=== PATIENT | female | born 1965 | race Caucasian/White ===

== ENCOUNTER 2017-02-17 14:17 | Outpatient (CLI) | payer BC ==
--- NOTE | 2017-02-17 15:18 | MMO ---
BILATERAL SCREENING MAMMOGRAM: DATE: 02/17/17 HISTORY: [id number] female for screening mammography. COMPARISON: 09/24/06. FINDINGS: Bilateral MLO and CC views of the breasts show scattered fibroglandular breast tissue. Benign-appear ing calcifications are seen in both breasts. There is no evidence of suspicious mass, suspicious clu ster of microcalcifications, or area of architectural distortion. Interpretation of this mammogram was performed with the assistance of computer-aided detection. IMPRESSION: BIRADS 2: Benign Finding(s) Annual screening mammography is recommended. POS: YOKO
== END 2017-02-17 14:18 | disposition home or self-care (01) ==
LOC: MAMMO 14:17
PROVIDERS: ATTEND Obstetrics & Gynecology
DX: Z12.31 Encounter for screening mammogram for malignant neoplasm of breast (principal)
CPT/HCPCS: 77067; G0202

== ENCOUNTER 2020-07-24 19:28 | Inpatient (IN) | payer BC ==
[2020-07-24] MEDS ORDERED: Acetaminophen 650 MG Suppository PR PRN (21:50)
[2020-07-24] MEDS ORDERED: Acetaminophen 325 MG TAB PO PRN (21:50)
[2020-07-24] MEDS ORDERED: Dextrose 5% in Water 1,000 ML IV PRN (21:53)
[2020-07-24] MEDS ORDERED: Dextrose 50% Abboject 50 ML SYRINGE SLOW IVP PRN (21:53)
[2020-07-24] MEDS ORDERED: HumaLOG 300 UNITS/3 ML VIAL SC PRN (21:53)
[2020-07-24] MEDS ORDERED: Lidocaine 2% Viscous Solution 10 ML, Aluminum & Magnesium Hydroxide 30 ML SSW SCH (22:30)
[2020-07-24] MEDS ORDERED: traMADol HCl 50 MG TAB PO PRN (22:35)
[2020-07-24] MEDS ORDERED: Famotidine/PF 20 mg/2ml Vial SLOW IVP SCH (22:45)
[2020-07-24 22:51] LABS: Hemoglobin 10.9 g/dL (12.0-16.0); Mean Corpuscular HGB CONC 32.5 g/dL (32.0-36.0); Mean Corpuscular Hemoglobin 29.4 pg (27.0-31.0); Mean Corpuscular Volume 90.6 fL (78.0-98.0); Mean Platelet Volume 8.4 fL (7.4-10.4); Platelet Count 144 thou/uL (130-400); Red Blood Cell (RBC) Count 3.72 mill/uL (4.20-5.40)
[2020-07-24 22:58] LABS: ALT (SGPT) 20 U/L (8-55); AST (SGOT) 13 U/L (5-34); Albumin 2.6 g/dL (3.5-5.0); Alkaline Phosphatase 126 U/L (40-110); Anion Gap 17 mmol/L (10-20); BUN (Urea Nitrogen) 40 mg/dL (9.8-20.1); Bilirubin, Total 0.3 mg/dL (0.2-1.2); Calc. Creatinine Clearance 0 mL/min (70-130); Calcium 7.9 mg/dL (7.8-10.44); Carbon Dioxide 20 mmol/L (22-29); Chloride 102 mmol/L (98-107); Glucose 236 mg/dL (70-105); Magnesium 1.7 mg/dL (1.6-2.6); Potassium 3.5 mmol/L (3.5-5.1); Protein, Total 5.6 g/dL (6.0-8.3); Sodium 135 mmol/L (136-145)
[2020-07-24] MEDS ORDERED: Sodium Chloride 0.9% 1,000 ML IV SCH (23:00)
[2020-07-24 23:15] LABS: Band 27 % (5-11); Lymphocytes 6 % (21-51); MDiff Complete? YES; Monocytes 2 % (0-10); Neutrophil 65 % (42-75); Toxic Granulation SLIGHT; Vacuoles SLIGHT
--- NOTE | 2020-07-25 | PDOC.HHP ---
Hospitalist HPI History of Present Illness: ADMISSION DATE: 07/24/2020 TIME OF ASSESSMENT: 2099 PRIMARY CARE PHYSICIAN: Dr. Shipman CHIEF COMPLAINT: Abdominal pain HPI: This is a 55-year-old woman who was transferred here from [facility] after presenting with acute abdominal pain that started abruptly today. States it s eemed to be worse on the right side of her abdomen but it was also affecting the left side of her abdomen reports discomfort radiating towards her back bilaterally. Has not had anything to eat or drink today and reports having no bowel movement in 3 days. Currently she is experiencing some epigastric discomfort which she feels is associated with reflux and is having excessive belching. Reports having some nausea with dry heaving yesterday. ED COURSE: Patient received IV antibiotics with Rocephin and was given 2 L of normal saline. For her pain she received hydromorphone 0.5 mg IV x1. For nausea she received Zofran [address] abdomen and pelvis with stone protocol done and revealed mild to moderate right renal edema. Moderate right hydronephrosis. Right ureteropelvic junction 5 x 7 x 12 mm calculus. Bilateral intrarenal calculi measuring 1 to 3 mm. Some air seen within the bladder suggesting recent catheterization. Nonspecific mildly distended fluid-filled loops of small bowel in the abdomen and pelvis felt to be associated with adynamic ileus. Some fluid in the ascending colon. Left ovarian 2.2 x 2.3 cm cyst. Possible gallbladder sludge. Urinalysis showed bernard appearing urine with 2+ bilirubin, 1+ ketone, 2+ protein, trace leukocytes, negative nitrates and negative blood. Covid testing done, results unknown. Labs showed potassium 3.8, BUN 39, creatinine 1.4, alk phos 127, AST 22, ALT 20, total bilirubin 0.8. GFR 50. White blood count 10.3, hemoglobin 11.9, hematocrit 37.7, platelets 199. Allergies/Adverse Reactions: Allergy/AdvReac Type Severity Reaction Status Date / Time codeine AdvReac Verified 07/24/20 22:22 Home Medications: Medication Instructions Recorded Confirmed Type glyBURIDE [Glyburide] 5 mg PO DAILY 07/24/20 07/24/20 History metFORMIN [Glucophage] 1,000 mg PO BID-WM 07/24/20 07/24/20 History Past History: PAST MEDICAL HISTORY: 1. Type 2 diabetes mellitus PAST SURGICAL HISTORY: None. SOCIAL HISTORY: Denies any tobacco use. Admits to drinking alcohol socially. Denies any drug use. She lives with her at home and fully independent at baseline. FAMILY HISTORY: Noncontributory Hospitalist Exam Vitals: Vital Signs (12 hours) Temp Pulse Resp BP Pulse Ox 07/24/20 23:17 97.9 F 106 H 18 107/71 94 L Hospitalist Results Result Diagrams: 07/24/20 22:30 07/24/20 22:30 Lab results: Laboratory Last Values WBC 6.0 thou/uL (4.8-10.8) 07/24/20 22: RBC 3.72 mill/uL (4.20-5.40) L 07/24/20 22: Hgb 10.9 g/dL (12.0-16.0) L 07/24/20 22:30 Hct 33.7 % (36.0-47.0) L 07/24/20 22: MCV 90.6 fL (78.0-98.0) 07/24/20 22: MCH 29.4 pg (27.0-31.0) 07/24/20 22: MCHC 32.5 g/dL (32.0-36.0) 07/24/20 22: RDW 13.0 % (11.5-14.5) 07/24/20 22: Plt Count 144 thou/uL (130-400) 07/24/20 22:30 MPV 8.4 fL (7.4-10.4) 07/24/20 22:30 Neutrophils % (Manual) 65 % (42-75) 07/24/20 22:30 Band Neuts % (Manual) 27 % (5-11) H 07/24/20 22:30 Lymphocytes % (Manual) 6 % (21-51) L 07/24/20 22: Monocytes % (Manual) 2 % (0-10) 07/24/20: Lymphocytes # Not Reportable 07/24/20 22:30 WBC Morphology SLIGHT 07/24/20 22:30 Toxic Granulation SLIGHT 07/24/20 22:30 Sodium 135 mmol/L (136-145) L 07/24/20 22: Potassium 3.5 mmol/L (3.5-5.1) 07/24/20 22:30 Chloride 102 mmol/L (98-107) 07/24/20 22:30 Carbon Dioxide 20 mmol/L (22-29) L 07/24/20 22:30 Anion Gap 17 mmol/L (10-20) 07/24/20 22:30 BUN 40 mg/dL (9.8-20.1) H 07/24/20 22:30 Creatinine 1.43 mg/dL (0.6-1.1) H 07/24/20 22:30 Estimated GFR (MDRD) 38 07/24/20 22:30 Glucose 236 mg/dL (70-105) H 07/24/20 22:30 Lactic Acid 1.0 mmol/L (0.5-2.2) 07/24/20 22:30 Calcium 7.9 mg/dL (7.8-10.44) 07/24/20 22:30 Magnesium 1.7 mg/dL (1.6-2.6) 07/24/20 22:30 Total Bilirubin 0.3 mg/dL (0.2-1.2) 07/24/20 22:30 AST 13 U/L (5-34) 07/24/20 22:30 ALT 20 U/L (8-55) 07/24/20 22:30 Alkaline Phosphatase 126 U/L (40-110) H 07/24/20 22:30 Serum Total Protein 5.6 g/dL (6.0-8.3) L 07/24/20 22:30 Albumin 2.6 g/dL (3.5-5.0) L 07/24/20 22:30 Globulin 3.0 g/dL (2.4-3.5) 07/24/20 22:30 Albumin/Globulin Ratio 0.9 g/dL (1.2-2.2) L 07/24/20 22:30 Hospitalist H&P A/P (1) Obstruction of right ureteropelvic junction (UPJ) due to stone Code(s): N20.1 - CALCULUS OF URETER Status: Acute Assessment and Plan: Obtain repeat labs including renal function Consult placed to Dr. Retana who apparently is aware of case Continue IV antibiotics Morphine PRN for pain (2) Abdominal pain Code(s): R10.9 - UNSPECIFIED ABDOMINAL PAIN Status: Acute Assessment and Plan: Well-controlled with Morphine (3) Dehydration Code(s): E86.0 - DEHYDRATION Status: Acute Assessment and Plan: Patient with stomatitis, will start IV fluids Awaiting repeat labs to assess current renal function (4) Diabetes mellitus Code(s): E11.9 - TYPE 2 DIABETES MELLITUS WITHOUT COMPLICATIONS Status: Chronic Assessment and Plan: Monitor ISS, accu-checks Hold PO meds (5) GERD (gastroesophageal reflux disease) Code(s): K21.9 - GASTRO-ESOPHAGEAL REFLUX DISEASE WITHOUT ESOPHAGITIS Status: Chronic Assessment and Plan: Patient with indigestion, will give GI cocktail Famotidine 20 mg BID as well Plan: CODE STATUS: FULL Case discussed with Dr. Goodwin who agrees with plan as above.
[2020-07-25 00:48] VITALS: BMI 28.2
[2020-07-25] MEDS ORDERED: Magnesium 2 GM/50 ML 2 GM in Premix Bag 1 BAG IVPB SCH (04:00)
[2020-07-25] MEDS: Morphine 2 MG/ML VIAL SLOW IVP PRN ×2 (05:04→08:41)
[2020-07-25] MEDS: Sodium Chloride 0.9% 1,000 ML IV SCH ×2 (05:07→08:40)
[2020-07-25 06:58] LABS: Hemoglobin 12.3 g/dL (12.0-16.0); Mean Corpuscular HGB CONC 31.6 g/dL (32.0-36.0); Mean Corpuscular Hemoglobin 29.2 pg (27.0-31.0); Mean Corpuscular Volume 92.4 fL (78.0-98.0); Mean Platelet Volume 8.6 fL (7.4-10.4); Platelet Count 170 thou/uL (130-400); RBC Distribution Width 13.2 % (11.5-14.5); Red Blood Cell (RBC) Count 4.19 mill/uL (4.20-5.40); White Blood Cell (WBC) Count 9.3 thou/uL (4.8-10.8)
[2020-07-25 07:09] LABS: ALT (SGPT) 23 U/L (8-55); AST (SGOT) 13 U/L (5-34); Albumin 2.8 g/dL (3.5-5.0); Alkaline Phosphatase 148 U/L (40-110); Anion Gap 18 mmol/L (10-20); BUN (Urea Nitrogen) 34 mg/dL (9.8-20.1); Bilirubin, Total 0.4 mg/dL (0.2-1.2); Calc. Creatinine Clearance 46 mL/min (70-130); Calcium 8.4 mg/dL (7.8-10.44); Carbon Dioxide 20 mmol/L (22-29); Chloride 100 mmol/L (98-107); Globulin 3.5 g/dL (2.4-3.5); Glucose 238 mg/dL (70-105); Potassium 3.7 mmol/L (3.5-5.1); Protein, Total 6.3 g/dL (6.0-8.3); Sodium 134 mmol/L (136-145)
[2020-07-25] MEDS ORDERED: Bisacodyl 5 MG TAB PO PRN (07:38)
[2020-07-25] MEDS ORDERED: HYDROcodone/Acetaminophen 10/325 mg Tablet PO PRN (07:38)
[2020-07-25 08:35] LABS: Band 34 % (5-11); Large Platelets SLIGHT; Lymphocytes 8 % (21-51); MDiff Complete? YES; Metamyelocyte 3 % (0-0); Monocytes 3 % (0-10); Neutrophil 50 % (42-75); Platelet Morphology Comment Appears Adequate; Polychromasia SLIGHT = 2-3 cells (100X) (0-2/hpf); Reactive Lymphocytes 1 % (0-10)
[2020-07-25] MEDS: Oxybutynin 5 MG TAB PO SCH (08:40)
[2020-07-25] MEDS: Tamsulosin HCl 0.4 MG CAP PO SCH (08:40)
--- NOTE | 2020-07-25 09:17 | CON ---
DATE OF CONSULTATION: 07/25/2020 REASON FOR CONSULTATION: Right ureteral stone. CHIEF COMPLAINT: Right back pain. HISTORY OF PRESENT ILLNESS: This is a 55-year-old female, who developed right-sided back pain radiating towards the front and towards her groin over the past week. This first started last Friday and worsened over the past 24 to 48 hours to the point that she was seen at [facility] yesterday. She was then transferred to [facility], where workup revealed a large right ureteral stone with finding suggestive of infection including a small amount of air in her bladder. Her blood sugar was elevated in the 250s and so she was transferred over to [place] for further management. She was admitted overnight to the Hospitalist Service. In speaking with her, she denies having any recent fevers and reports that her pain is somewhat improved overnight, but still up to about 7/10 frequently. She is not having any nausea at this point, and denies dysuria, hematuria, or suprapubic pain. No history of stones. No problems with recurrent bladder infections. PAST MEDICAL HISTORY: Diabetes. PAST SURGICAL HISTORY: None. SOCIAL HISTORY: Nonsmoker. No substance abuse. Works at [employer] at [employer]. FAMILY HISTORY: Reviewed, noncontributory. HOME MEDICATIONS: Glyburide and metformin. ALLERGIES: CODEINE. REVIEW OF SYSTEMS: A 12-point review of systems is negative except as mentioned in my HPI. PHYSICAL EXAMINATION: VITAL SIGNS: Afebrile, tachycardic between 100 and 120 overnight, blood pressure stable. GENERAL: In no acute distress. Conversant. HEENT: Head, normocephalic and atraumatic. Extraocular movements intact. Sclerae anicteric. NECK: Supple. Trachea midline. CHEST: Unlabored breathing. Symmetric chest expansion. HEART: Regular rate and rhythm. ABDOMEN: Soft, nontender, nondistended. Positive right flank tenderness. No suprapubic tenderness. EXTREMITIES: No peripheral edema or cyanosis. SKIN: Warm and dry. NEUROLOGIC: Alert and oriented x3. PSYCHIATRIC: Normal mood and affect. DIAGNOSTIC STUDIES: Laboratory from [facility] reviewed. Creatinine 1.4. White count 10. Urinalysis; trace leukocytes, negative nitrite. Laboratory this morning, white count 9.3, 50% neutrophils. Creatinine 1.39. IMAGING DATA: I was unable to get the CD to load from [facility]; however, I have been able to review the report, which indicates a 12-mm right UPJ stone with hydronephrosis and edema of the right kidney as well as air in the bladder. ASSESSMENT AND PLAN: Right ureteral stone, possible urinary tract infection, acute kidney injury. The patient and I discussed her options and I advised that we proceed to the operating room today for right ureteral stent placement. I do not think an attempt at intervention is stone under the current setting. I explained the stent procedure in detail including the risks of bleeding, infection, pain, possible inability to place the stent requiring a nephrostomy tube, and the need for definitive stone management over the next couple of weeks. She expresses understanding and wishes to continue. I expect her creatinine to improve with drainage of the right renal unit. Job ID: [id number]
[2020-07-25] MEDS ORDERED: Ondansetron PF 4 MG/2 ML Vial ONE ×2 (09:31→11:40)
[2020-07-25] MEDS ORDERED: Dexamethasone 20 MG/5 ML VIAL ONE (09:31)
[2020-07-25] MEDS ORDERED: Rocuronium Bromide 10 MG/ML (10ML VIAL) ONE (09:31)
[2020-07-25] MEDS ORDERED: PROPOFOL 200 MG/20 ML VIAL ONE (09:31)
[2020-07-25] MEDS ORDERED: Lidocaine 1% PF 5 ML VIAL ONE (09:31)
[2020-07-25] MEDS ORDERED: Morphine 4 MG/ML VIAL ONE (11:40)
[2020-07-25] MEDS ORDERED: Ketorolac Tromethamine 30 MG/ML VIAL IVP SCH (12:00)
[2020-07-25] MEDS ORDERED: Levofloxacin 500 mg/D5W 100 ml Premix Bag ONE (12:40)
[2020-07-25] MEDS ORDERED: Iothalamate Meglumine 60% 50 ML VIAL FS ONE (12:43)
[2020-07-25] MEDS ORDERED: Fentanyl 100 MCG/2 ML VIAL ONE (12:59)
[2020-07-25] MEDS ORDERED: Ondansetron HCl/PF 4 MG/2 ML Vial IVP PRN (13:32)
[2020-07-25] MEDS ORDERED: Promethazine HCl 25 MG/ML VIAL IM PRN (13:32)
[2020-07-25] MEDS ORDERED: Promethazine HCl 25 MG/ML VIAL SLOW IVP PRN (13:32)
[2020-07-25] MEDS ORDERED: SUGAMMADEX SODIUM 200 MG/2 ML VIAL ONE (13:39)
[2020-07-25] MEDS ORDERED: Promethazine HCl 25 MG/ML VIAL ONE (13:55)
--- NOTE | 2020-07-25 13:59 | OP ---
DATE OF PROCEDURE: 07/25/2020 PREOPERATIVE DIAGNOSIS: Right ureteral stone. POSTOPERATIVE DIAGNOSIS: Right ureteral stone. PROCEDURES PERFORMED: Cystoscopy, right retrograde pyelogram, manipulation of ureteral stone, 6 x 24 double-J ureteral stent placement. ANESTHESIA: General. COMPLICATIONS: None. ESTIMATED BLOOD LOSS: Minimal. SPECIMEN: Right renal urine culture. DESCRIPTION OF PROCEDURE: After informed consent, the patient was taken to the operating room, transferred to the table under her own power. Anesthesia was established. A time-out was performed, showing the correct patient, site, and procedure. Preoperative antibiotics were administered. She was prepped and draped in the lithotomy position. I began by inserting the rigid cystoscope through the urethra into the bladder noting a moderate cystocele. The bladder was systematically examined noting no mucosal abnormalities. The right ureteral orifice was cannulated with a Pollack catheter and a retrograde pyelogram performed showing good filling of the ureter up to the level of the stone seen on fluoroscopy in the proximal ureter. Contrast passed the stone and filled the renal pelvis, which showed minimal hydronephrosis. I was then able to pass a wire through the Pollack catheter and negotiated around the stone with some difficulty. I then attempted to pass a 6 x 24 double-J ureteral stent. However, was unable to bypass the stone with the stent and so removed the stent and switched to a dual-lumen catheter, which I was able to utilize to dislodge the stone into a more proximal region of the ureter. The dual-lumen was then easily passed into the renal pelvis. A urine culture was taken as the resultant urine was purulent in appearance. The dual-lumen was removed and then the 6 x 24 double-J ureteral stent without strings was passed over the wire with a curl in the kidney and curl in the bladder under fluoroscopic guidance. She was then awoken from anesthesia, transferred back to her hospital bed, taken to PACU in stable condition, where she will return to the floor upon recovery. Job ID: [id number]
--- NOTE | 2020-07-25 14:07 | RAD ---
RETROGRADE PYELOGRAM: HISTORY: Right stent placement. FINDINGS: A single C-arm view shows placement of a right ureteral stent. IMPRESSION: Right ureteral stent placement. POS: SHERIE
--- NOTE | 2020-07-25 15:33 | PDOC.HOSPP ---
- Subjective Encounter Date: 07/25/20 Encounter Time: 15:31 Subjective: F/u: kidney stone THe patient has mild soreness from the procedure. She presented with acute back pain, felt like someone had stabbed her. She had no hematuria or dysuria . Du Cystoscopy was done and dual lumen catheter placed to dislodge the stone - Objective Vital Signs & Weight: Vital Signs (12 hours) Temp Pulse Resp BP Pulse Ox 07/25/20 07:15 99.6 F 115 H 24 H 125/83 93 L 07/25/20 04:10 98.4 F 120 H 18 110/75 92 L Weight Weight 144 lb 8 oz I&O: 07/24/20 07/25/20 07/26/20 06:59 06:59 06:59 Intake Total 1000 Balance 1000 Result Diagrams: 07/25/20 06:34 07/25/20 06:34 Additional Labs: Accuchecks 07/25/20 07/25/20 15:07 05:55 POC Glucose 189 H 213 H Hospitalist ROS - Review of Systems Constitutional: denies: fever, chills - Medication Medications: Active Medications Generic Name Dose Route Start Last Admin Trade Name Freq PRN Reason Stop Dose Admin Sodium Chloride 1,000 mls @ 100 mls/hr 07/25/20 04:45 07/25/20 08:40 Normal Saline 0.9% IV 1,000 mls .Q10H NANCY Administration Ketorolac Tromethamine 15 mg 07/25/20 12:00 07/25/20 15:08 Ketorolac Tromethamine 30 Mg/Ml Vial IVP 07/30/20 12:01 15 mg Q6HR NANCY Administration Morphine Sulfate 2 mg 07/25/20 04:33 07/25/20 08:41 Morphine 2 Mg/Ml Vial SLOW IVP 2 mg Q4H PRN Administration Moderate to Severe Pain (6-10) Oxybutynin Chloride 5 mg 07/25/20 09:00 07/25/20 08:40 Oxybutynin 5 Mg Tab PO 5 mg DAILY NANCY Administration Tamsulosin HCl 0.4 mg 07/25/20 09:00 07/25/20 08:40 Tamsulosin Hcl 0.4 Mg Cap PO 0.4 mg DAILY NANCY Administration Tramadol HCl 50 mg 07/24/20 22:35 07/25/20 03:27 Tramadol Hcl 50 Mg Tab PO 50 mg Q4H PRN Administration Moderate Pain (4-6) Hospitalist Exam Vitals: Vital Signs (12 hours) Temp Pulse Resp BP Pulse Ox 07/25/20 07:15 99.6 F 115 H 24 H 125/83 93 L 07/25/20 04:10 98.4 F 120 H 18 110/75 92 L Weight Weight 144 lb 8 oz General Appearance: NAD, awake alert Eye: PERRL, anicteric sclera ENT: normocephalic atraumatic, no oropharyngeal lesions Neck: no JVD Heart: RRR, no murmur, no gallops, no rubs Respiratory: CTAB, no wheezes, no rales, no ronchi Gastrointestinal: soft, non-tender, non-distended, normal bowel sounds Extremities: no cyanosis, no clubbing, no edema Skin: normal turgor, no lesions, no rashes Neurological: cranial nerve grossly intact, normal sensation to touch, no weakness Musculoskeletal: normal tone, normal strength, no muscle wasting Hosp A/P - Plan CT abdomen: 5 x 7 x 12 mm calculus and moderate right hydronephrosis with mild to moderate renal edema. Mildly distended fluid filled loops of small bowel This is a 55 year old female who presented to the hospital with acute flank pain, found to have right ureteral stone s/p stent placement Right sided kidney stone with right sided hydronephrosis - pt is s/p stent placement today - continue IV fluids and IV ceftriaxone. F/u urine culture MARISEL - creatinine is improving to 1.39. Continue IV fluids Type II diabetes - hold metformin. Continue sliding scale insulin
[2020-07-25] MEDS: HumaLOG 300 UNITS/3 ML VIAL SC PRN (17:13)
[2020-07-25] MEDS ORDERED: cefTRIAXone\\ROCEPHIN 1 GM in Sodium Chloride 0.9% 100 ML IVPB SCH (19:00)
[2020-07-25] MEDS: Ketorolac Tromethamine 30 MG/ML VIAL IVP SCH (20:17)
[2020-07-25] MEDS ORDERED: Famotidine/PF 20 mg/2ml Vial SLOW IVP SCH (21:00)
[2020-07-26] MEDS: Sodium Chloride 0.9% 1,000 ML IV SCH (02:55)
[2020-07-26] MEDS: Ketorolac Tromethamine 30 MG/ML VIAL IVP SCH ×2 (02:55→08:01)
[2020-07-26] MEDS: HumaLOG 300 UNITS/3 ML VIAL SC PRN ×2 (06:03→12:15)
[2020-07-26] MEDS: Tamsulosin HCl 0.4 MG CAP PO SCH (08:01)
[2020-07-26] MEDS: Oxybutynin 5 MG TAB PO SCH (08:01)
[2020-07-26 08:14] LABS: Anion Gap 16 mmol/L (10-20); BUN (Urea Nitrogen) 42 mg/dL (9.8-20.1); Calc. Creatinine Clearance 48 mL/min (70-130); Calcium 7.7 mg/dL (7.8-10.44); Carbon Dioxide 18 mmol/L (22-29); Chloride 104 mmol/L (98-107); Glucose 320 mg/dL (70-105); Potassium 4.1 mmol/L (3.5-5.1); Sodium 134 mmol/L (136-145)
--- NOTE | 2020-07-26 09:08 | PRG ---
DATE OF SERVICE: 07/26/2020 SUBJECTIVE: No acute events overnight. She denies any fevers, nausea, or dysuria. Her right flank pain has much improved, although she still has slight discomfort with urinating as expected with the stent. She has been eating well overnight. OBJECTIVE: VITAL SIGNS: Afebrile. Vitals are stable overnight. GENERAL: Urine output has not been measured. No acute distress. Conversant. RESPIRATORY: Unlabored breathing. Symmetric chest expansion. HEART: Regular rate and rhythm. ABDOMEN: Soft, nontender, nondistended. No flank tenderness. No suprapubic tenderness. SKIN: Warm and dry. EXTREMITIES: No peripheral edema or cyanosis. NEUROLOGIC: Alert and oriented x3. LABORATORY DATA: A CBC has not been obtained. Her creatinine has improved to 1.33. ASSESSMENT AND PLAN: Postop day 1, cystoscopy, right ureteral stent placement for right ureteral stone with hydronephrosis and pyelonephritis. From urology standpoint, okay to discharge. Levaquin for 14 days has been sent to her pharmacy in [place] as well as oxybutynin for bladder spasms. I will see the results of her culture likely tomorrow and will alter therapy if necessary. However, she has already clinically improved. She can alternate Tylenol and ibuprofen for discomfort. She and I discussed her options for treating the stone and I have decided to proceed on August 08 with right ureteroscopy with laser lithotripsy. I explained the procedure in detail including the expected postoperative course and the risks of bleeding, infection, pain, and inability to access or clear the stone, possible need for second procedure, possibility of ureteral injury or stricture formation. She expressed understanding and wishes to proceed. My office will arrange this. Job ID: [id number]
[2020-07-26 13:50] VITALS: BP 139/78; TEMP 97.6
--- NOTE | 2020-07-26 18:24 | PDOC.DS.DS ---
Provider Date of Admission: 07/24/20 19:28 Date of Discharge: 07/26/20 Admitting Provider: Dannie Goodwin MD Consultations: Urology (Dr. Retana) Primary Care Physician: Treasure Shipman DO Course Hospital Course: Discharge Diagnoses: 1. Right sided kidney stone causing obstructive hydronephrosis 2. Left ovarian cyst Brief HPI: This a 55-year-old female with a past medical history of IBD presented to the emergency room from [facility] after presenting with severe right- sided abdominal pain. Pain was radiating towards her back and groin. She does CAT scan of her abdomen which showed a 5 x 7 x 12 mm calculus causing mild to moderate renal edema moderate right hydronephrosis. Also nonspecific mildly distended fluid filled loops of small bowel in the abdomen and pelvis possibly thought to represent ileus. The patient had a UA which was unremarkable for infection. Labs showed an elevated alk phos of 127, and a creatinine of 1.4. Patient was transferred here for further work-up. Hospital course: The patient underwent cystoscopy with 6x24 double-J ureteral stent placement. Stone was dislodged into more proximal region of the ureter but was unable to be removed completely. Patient was started on IV ceftriaxone. Urine culture grew Klebsiella/Enterobacter. The patient will be discharged with Levaquin empirically for 14 days and oxybutynin as needed for bladder spasms. If the final urine culture shows resistant organism, then antibiotics will be adjusted accordingly. The patient was advised to follow-up with Dr. Retana on August 08 for a laser lithotripsy. He will call her with details of the appointment time and location. Resuscitation Status: 07/24/20 21:50 Resuscitation Status Routine Co-Sign Provider: Resuscitation Status: FULL: Full Resuscitation Lab Results: 07/25/20 06:34 07/26/20 07:15 Abnormal Lab Results - Last 48 hrs 07/24/20 22:30: Sodium 135 L, Carbon Dioxide 20 L, BUN 40 H, Creatinine 1.43 H, Alkaline Phosphatase 126 H, Serum Total Protein 5.6 L, Albumin 2.6 L, Albumin/Globulin Ratio 0.9 L 07/24/20 22:30: RBC 3.72 L, Hgb 10.9 L, Hct 33.7 L, Band Neuts % (Manual) 27 H, Lymphocytes % (Manual) 6 L 07/25/20 06:34: Sodium 134 L, Carbon Dioxide 20 L, BUN 34 H, Creatinine 1.39 H, Alkaline Phosphatase 148 H, Albumin 2.8 L, Albumin/Globulin Ratio 0.8 L 07/25/20 06:34: RBC 4.19 L, MCHC 31.6 L, Band Neuts % (Manual) 34 H, Lymphocytes % (Manual) 8 L 07/26/20 07:15: Sodium 134 L, Carbon Dioxide 18 L, BUN 42 H, Creatinine 1.33 H, Calcium 7.7 L Microbiology - Entire Visit 07/25/20 13:34 Cystoscopy Urine Culture - Preliminary Presumptive Kleb/Enterobacter Vitals: Vital Signs (12 hours) Temp Pulse Resp BP BP Pulse Ox 07/26/20 13:50 97.6 F 81 20 139/78 99 07/26/20 08:00 97 07/26/20 07:16 97.8 F 74 16 136/66 97 Weight Weight 144 lb 8 oz Physical Exam: The patient was seen and examined on the day of discharge. General Appearance: NAD, awake alert Eye: PERRL, anicteric sclera ENT: normocephalic atraumatic, no oropharyngeal lesions Neck: supple, no JVD Respiratory: CTAB, no wheezes, no rales, no ronchi Cardiovascular: RRR, no murmur, no gallops, no rubs Gastrointestinal: soft, non-tender, non-distended, normal bowel sounds Extremities: no cyanosis, no clubbing Skin: normal turgor, no lesions, no rashes Neurological: cranial nerve grossly intact, normal sensation to touch, no weakness Musculoskeletal: normal tone, normal strength, no muscle wasting PSYCH: A&O x 3 Problem Time Spent in discharge related activities (mins): 30 Plan Home Medications: Medication Instructions Recorded Confirmed Type glyBURIDE [Glyburide] 5 mg PO DAILY 07/24/20 07/24/20 History metFORMIN [Glucophage] 1,000 mg PO BID- 07/24/20 07/24/20 History Allergies: codeine Adverse Reaction (Mild, Verified 07/25/20 04:57) Nausea Activity:: Activity as Tolerated Referrals: Tenzin Retana MD [Active] - 08/08/20 Treasure Shipman DO [Primary Care Provider] - Disposition: HOME Quality CORE MEASURES:: N/A
== END 2020-07-26 13:57 | disposition home or self-care (01) | DRG 660 ==
LOC: T4-A 19:28
PROVIDERS: ADMIT Student in an Organized Health Care Education/Training Program; ATTEND Internal Medicine
PROC: 0T768DZ Dilation of Right Ureter with Intraluminal Device, Via Natural or Artificial Opening Endoscopic (ICD-10-PCS; principal; 2020-07-25)
PROC: BT1D1ZZ Fluoroscopy of Right Kidney, Ureter and Bladder using Low Osmolar Contrast (ICD-10-PCS; 2020-07-25)
DX: N13.2 Hydronephrosis with renal and ureteral calculous obstruction (principal); K56.7 Ileus, unspecified; E11.9 Type 2 diabetes mellitus without complications; N17.9 Acute kidney failure, unspecified; N83.202 Unspecified ovarian cyst, left side; E86.0 Dehydration; K21.9 Gastro-esophageal reflux disease without esophagitis; Z88.6 Allergy status to analgesic agent; Z79.84 Long term (current) use of oral hypoglycemic drugs; Z79.899 Other long term (current) drug therapy
CPT/HCPCS: 36415; 36416; 74420; 80048; 80053; 83605; 83735; 85025; 87077; 87086; 87186; J0696; J1100; J1815; J1885; J1956; J2270; J2405; J2550; J2704; J3010; J3475; J3490; S0028

== ENCOUNTER 2020-07-27 23:49 | Observation (INO) | payer BC ==
[2020-07-28] MEDS ORDERED: Morphine 2 MG/ML VIAL SLOW IVP PRN (01:40)
[2020-07-28] MEDS ORDERED: Dextrose 5% in Water 1,000 ML IV PRN (01:42)
[2020-07-28] MEDS ORDERED: HumaLOG 300 UNITS/3 ML VIAL SC PRN (01:42)
[2020-07-28] MEDS ORDERED: Dextrose 50% Abboject 50 ML SYRINGE SLOW IVP PRN (01:42)
[2020-07-28] MEDS ORDERED: Senokot S 8.6-50 MG TAB PO PRN (01:44)
[2020-07-28] MEDS ORDERED: Acetaminophen 325 MG TAB PO PRN (01:44)
[2020-07-28] MEDS ORDERED: Ondansetron ODT 4 MG TAB PO PRN (01:44)
[2020-07-28] MEDS ORDERED: Bisacodyl 5 MG TAB PO PRN (01:44)
[2020-07-28] MEDS ORDERED: Ondansetron PF 4 MG/2 ML Vial IVP PRN (01:44)
[2020-07-28] MEDS ORDERED: Fentanyl 100 MCG/2 ML VIAL SLOW IVP SCH (01:45)
[2020-07-28] MEDS ORDERED: D5 1/2 NS w/10 mEq KCl 1,000 ML/1,000 ML BAG IV SCH (01:45)
[2020-07-28] MEDS: Sodium Chloride 0.9% 1,000 ML IV SCH ×2 (01:51→17:13)
[2020-07-28 02:12] VITALS: BMI 30.8
[2020-07-28 06:22] LABS: Hemoglobin 10.7 g/dL (12.0-16.0); Mean Corpuscular HGB CONC 32.7 g/dL (32.0-36.0); Mean Corpuscular Hemoglobin 29.7 pg (27.0-31.0); Mean Corpuscular Volume 90.7 fL (78.0-98.0); Mean Platelet Volume 8.3 fL (7.4-10.4); Platelet Count 175 thou/uL (130-400); RBC Distribution Width 13.5 % (11.5-14.5); Red Blood Cell (RBC) Count 3.62 mill/uL (4.20-5.40)
[2020-07-28 06:38] LABS: Anion Gap 14 mmol/L (10-20); BUN (Urea Nitrogen) 24 mg/dL (9.8-20.1); Calc. Creatinine Clearance 78 mL/min (70-130); Calcium 7.4 mg/dL (7.8-10.44); Carbon Dioxide 19 mmol/L (22-29); Chloride 105 mmol/L (98-107); Glucose 297 mg/dL (70-105); Potassium 3.9 mmol/L (3.5-5.1); Sodium 134 mmol/L (136-145)
[2020-07-28 06:45] LABS: Band 13 % (5-11); Lymphocytes 6 % (21-51); MDiff Complete? YES; Metamyelocyte 2 % (0-0); Monocytes 6 % (0-10); Neutrophil 73 % (42-75); Platelet Morphology Comment Appears Adequate
[2020-07-28] MEDS ORDERED: Insulin Glargine 20 UNITS in Pre-Filled Syringe 1 EACH SC SCH (07:45)
[2020-07-28] MEDS: Famotidine/PF 20 mg/2ml Vial SLOW IVP SCH ×2 (08:05→20:58)
[2020-07-28] MEDS: Famotidine 20 MG TAB PO SCH ×2 (08:05→21:40)
[2020-07-28] MEDS ORDERED: Iothalamate Meglumine 60% 50 ML VIAL FS ONE (08:12)
[2020-07-28] MEDS ORDERED: Fentanyl 100 MCG/2 ML VIAL ONE (08:20)
[2020-07-28] MEDS ORDERED: Levofloxacin 500 mg/D5W 100 ml Premix Bag ONE (08:34)
[2020-07-28] MEDS ORDERED: Ondansetron PF 4 MG/2 ML Vial ONE (09:01)
[2020-07-28] MEDS ORDERED: Lidocaine 1% PF 5 ML VIAL ONE (09:01)
[2020-07-28] MEDS ORDERED: PROPOFOL 200 MG/20 ML VIAL ONE (09:01)
[2020-07-28] MEDS ORDERED: Dexamethasone 20 MG/5 ML VIAL ONE (09:01)
[2020-07-28] MEDS ORDERED: Ondansetron HCl/PF 4 MG/2 ML Vial IVP PRN (09:12)
[2020-07-28] MEDS ORDERED: HYDROmorphone 2 MG/ML VIAL SLOW IVP PRN (09:12)
[2020-07-28] MEDS ORDERED: Promethazine HCl 25 MG/ML VIAL IM PRN (09:12)
[2020-07-28] MEDS ORDERED: Promethazine HCl 25 MG/ML VIAL SLOW IVP PRN (09:12)
[2020-07-28] MEDS ORDERED: Meperidine HCl/PF 25 MG/ML VIAL SLOW IVP PRN (09:12)
[2020-07-28] MEDS: HumaLOG 300 UNITS/3 ML VIAL SC PRN ×2 (12:39→17:14)
[2020-07-28] MEDS: metFORMIN 500 MG TAB PO SCH (17:13)
[2020-07-29] MEDS: Sodium Chloride 0.9% 1,000 ML IV SCH ×2 (05:29→07:07)
[2020-07-29] MEDS: HumaLOG 300 UNITS/3 ML VIAL SC PRN (07:06)
[2020-07-29 07:13] VITALS: BP 137/58; TEMP 98.5
[2020-07-29] MEDS: metFORMIN 500 MG TAB PO SCH (08:19)
[2020-07-29] MEDS: Famotidine 20 MG TAB PO SCH (08:19)
[2020-07-29] MEDS: Famotidine/PF 20 mg/2ml Vial SLOW IVP SCH (08:20)
[2020-07-29] MEDS ORDERED: glyBURIDE 5 MG TAB PO SCH (09:00)
== END 2020-07-29 13:43 | disposition home or self-care (01) ==
LOC: T4-A 07-28 01:11 → INTOOBSV 07-28 01:11
PROVIDERS: ADMIT Student in an Organized Health Care Education/Training Program; ATTEND Internal Medicine
PROC: 0T768DZ Dilation of Right Ureter with Intraluminal Device, Via Natural or Artificial Opening Endoscopic (ICD-10-PCS; principal; 2020-07-28)
DX: T83.122A Displacement of indwelling ureteral stent, initial encounter (principal); N13.6 Pyonephrosis; E11.65 Type 2 diabetes mellitus with hyperglycemia; E66.9 Obesity, unspecified; Z68.30 Body mass index [BMI] 30.0-30.9, adult; Z79.84 Long term (current) use of oral hypoglycemic drugs; Z88.5 Allergy status to narcotic agent
CPT/HCPCS: 36415; 36416; 74420; 80048; 85025; 96361; 96365; 96375; G0378; J1100; J1815; J1956; J2270; J2405; J2704; J3010; Q9961

== ENCOUNTER 2020-08-03 14:38 | Outpatient (CLI) | payer BC ==
[2020-08-03 17:01] LABS: Anion Gap 16 mmol/L (10-20); BUN (Urea Nitrogen) 9 mg/dL (9.8-20.1); Calc. Creatinine Clearance 0 mL/min (70-130); Calcium 8.1 mg/dL (7.8-10.44); Carbon Dioxide 27 mmol/L (22-29); Chloride 96 mmol/L (98-107); Glucose 114 mg/dL (70-105); Potassium 3.9 mmol/L (3.5-5.1); Sodium 135 mmol/L (136-145)
[2020-08-04 04:32] LABS: SARS-CoV-2 PCR by NAA Not Detected (NotDetected)
== END 2020-08-03 14:39 | disposition home or self-care (01) ==
LOC: LABBT 14:38
PROVIDERS: ATTEND Urology
DX: Z01.818 Encounter for other preprocedural examination (principal); Z20.822 Contact with and (suspected) exposure to COVID-19
CPT/HCPCS: 80048; 87635; 93005; 93010; U0003; U0005

== ENCOUNTER 2020-08-08 10:16 | Day surgery (SDC) | payer BC ==
[2020-08-08] MEDS ORDERED: Levofloxacin 500 mg/D5W 100 ml Premix Bag ONE (11:00)
[2020-08-08] MEDS ORDERED: Iothalamate Meglumine 60% 50 ML VIAL FS ONE (12:16)
[2020-08-08] MEDS ORDERED: Fentanyl 100 MCG/2 ML VIAL ONE (12:20)
[2020-08-08] MEDS ORDERED: Ondansetron PF 4 MG/2 ML Vial ONE (12:34)
[2020-08-08] MEDS ORDERED: Lidocaine 1% PF 5 ML VIAL ONE ×2 (12:34)
[2020-08-08] MEDS ORDERED: PROPOFOL 200 MG/20 ML VIAL ONE (12:34)
[2020-08-08] MEDS ORDERED: Dexamethasone 20 MG/5 ML VIAL ONE (12:34)
[2020-08-08] MEDS ORDERED: Ketorolac Tromethamine 30 MG/ML VIAL ONE (12:34)
== END 2020-08-08 14:20 | disposition home or self-care (01) ==
LOC: SDC 10:16
PROVIDERS: ATTEND Urology
PROC: 0TC38ZZ Extirpation of Matter from Right Kidney Pelvis, Via Natural or Artificial Opening Endoscopic (ICD-10-PCS; principal; 2020-08-08)
PROC: 0T768DZ Dilation of Right Ureter with Intraluminal Device, Via Natural or Artificial Opening Endoscopic (ICD-10-PCS; principal; 2020-08-08)
DX: N20.0 Calculus of kidney (principal); Z79.4 Long term (current) use of insulin; Z79.899 Other long term (current) drug therapy; Z88.5 Allergy status to narcotic agent
CPT/HCPCS: 74420; 82365; 88300; J1100; J1885; J1956; J2405; J2704; J3010

== ENCOUNTER 2020-09-11 14:22 | Outpatient (CLI) | payer BC | END 2020-09-11 14:23 | disposition home or self-care (01) | LOC: BICULT 14:22 | PROVIDERS: ATTEND Urology | DX: N20.1 Calculus of ureter (principal) | CPT/HCPCS: 76770 ==

== ENCOUNTER 2020-09-20 15:31 | Outpatient (CLI) | payer BC | END 2020-09-20 15:32 | disposition home or self-care (01) | LOC: BICMAMMO 15:31 | PROVIDERS: ATTEND Physician Assistant | DX: Z12.31 Encounter for screening mammogram for malignant neoplasm of breast (principal) | CPT/HCPCS: 77063; 77067 ==

== ENCOUNTER 2022-06-05 09:36 | Outpatient (CLI) | payer BC | END 2022-06-05 09:37 | disposition home or self-care (01) | LOC: BICMAMMO 09:36 | PROVIDERS: ATTEND Physician Assistant | DX: Z12.31 Encounter for screening mammogram for malignant neoplasm of breast (principal); R92.1 Mammographic calcification found on diagnostic imaging of breast | CPT/HCPCS: 77063; 77067 ==

== ENCOUNTER 2023-06-19 07:51 | Outpatient (CLI) | payer BC | END 2023-06-19 07:52 | disposition home or self-care (01) | LOC: BICMAMMO 07:51 | PROVIDERS: ATTEND Physician Assistant | DX: Z12.31 Encounter for screening mammogram for malignant neoplasm of breast (principal) | CPT/HCPCS: 77063; 77067 ==